=== PATIENT | female | born 1970 | race Caucasian/White ===

== ENCOUNTER 2024-11-07 07:39 | Day surgery (SDC) | payer BC ==
[2024-11-06 14:36] LABS: Absolute Basophils 0.1 K/uL (0-0.5); Absolute Eosinophils 0.3 K/uL (0-0.5); Absolute Lymphocytes (CBC) 2.6 K/uL (0.7-4.9); Absolute Monocytes 0.6 K/uL (0.1-1.3); Absolute Neutrophil 3.6 K/uL (1.8-8.0); Basophils % 1.3 % (0-1.3); Hematocrit 45.7 % (36.0-45.0); Hemoglobin 15.8 g/dL (12.0-15.0); Lymphocytes % 35.7 % (15.3-44.8); MCH 30.4 pg (27.0-35.0); MCHC 34.5 g/dL (32.0-36.0); MPV 8.4 fL (7.6-11.3); Monocytes % 8.6 % (3.3-12.3); Neutrophils % 50.4 % (41.7-73.7); Platelets 305 thou/uL (152-406); RBC Red Blood Cell Count 5.19 M/uL (3.86-4.86); Red Cell Distribution Width 13.4 % (12.1-15.2)
[2024-11-06 14:47] LABS: Anion Gap 7.3 mEq/L (5.0-15.0); Potassium 4.3 mEq/L (3.5-5.1)
[2024-11-07] MEDS: Ringers Lactate 1,000 ML IV ONE (08:15)
[2024-11-07] MEDS ORDERED: propofoL 200 MG/20 ML VIAL IV ONE (10:33)
[2024-11-07] MEDS ORDERED: LIDOCAINE 1% MPF 5 ML VIAL ONE (10:33)
[2024-11-07 11:35] VITALS: BP 94/67; TEMP 97.1; O2SAT 96
--- NOTE | 2024-11-10 12:15 | EKG ---
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
== END 2024-11-07 11:40 | disposition home or self-care (01) ==
LOC: OR 07:39
PROVIDERS: ATTEND Surgery
PROC: 0DJD8ZZ Inspection of Lower Intestinal Tract, Via Natural or Artificial Opening Endoscopic (ICD-10-PCS; principal; 2024-11-07 09:15)
DX: Z12.11 Encounter for screening for malignant neoplasm of colon (principal); K64.8 Other hemorrhoids; K64.4 Residual hemorrhoidal skin tags
CPT/HCPCS: 93005; 85025; 80048; 36415; 45378; J2704; J2003; J7120